=== PATIENT | female | born 1960 | race Caucasian/White ===

== ENCOUNTER 2017-12-04 23:08 | Emergency (ER) | payer OTHER ==
[~2017-12-04] VITALS: Ht 172.7 cm; Wt 77.1 kg
[~2017-12-04 23:08] MED LIST: ADVIL PM CAPLE1 EACH PO; AMBIEN 10 MG TA10 MG PO; ATIVAN1 MG PO; AZITHROMYCIN 2250 MG PO; BENTYL10 MG PO; CLEOCIN HCL150 MG PO; FLEXERIL PO; IBUPROFEN 200200 M1 PO; LIPITOR80 MG PO; OMEPRAZOLE40 MG PO; PHENERGAN-CODE120 ML PO; ULTRAM 50MG TAB50 MG PO; UNKOWN CHOLESTEROL; ZOFRAN ODT4 MG SUBLING
[2017-12-04] MEDS ORDERED: AMBIEN CR 6.26.25 MG (23:20)
[2017-12-04 23:44] LABS: ABSOLUTE BASOPHILS 0.2 thou/uL (0.0-0.2); ABSOLUTE LYMPHOCYTES 2.3 thou/uL (0.8-5.3); ABSOLUTE MONOCYTES 0.8 thou/uL (0.0-1.2); ABSOLUTE NEUTROPHILS 13.3 thou/uL (1.6-8.1); EOSINOPHILS 0.2 %; HEMATOCRIT 40.8 % (37.0-47.0); HEMOGLOBIN 13.9 gm/dL (12.0-15.0); LYMPHOCYTES 14.1 %; MCV 85.1 fL (80.0-100.0); MONOCYTES 4.8 %; MPV 7.3 fl. (7.2-11.1); NUCLEATED RBCS 0 /100WBC; PLATELET COUNT* 235 thou/uL (150-400); POLYS 79.9 %; RDW-CV 13.2 % (10.5-14.5); WBC 16.6 thou/uL (4.0-11.0)
[2017-12-04 23:52] LABS: CALCIUM 8.6 mg/dL (8.5-10.1); CREATININE 0.9 mg/dL (0.6-1.3); POTASSIUM 3.8 mmol/L (3.5-5.1)
[2017-12-04 23:57] LABS: ALBUMIN 4.1 g/dL (3.4-5.0); TOTAL BILIRUBIN 0.6 mg/dL (<0.1-1.0); TOTAL PROTEIN 7.8 g/dL (6.4-8.2)
[2017-12-05 00:14] LABS: URINE BILIRUBIN NEGATIVE (Negative); URINE BLOOD 2+ (Negative); URINE CLARITY CLEAR; URINE COLOR YELLOW; URINE GLUCOSE-RANDOM NEGATIVE (Negative); URINE KETONES NEGATIVE (Negative); URINE LEUKOCYTES-REFLEX NEGATIVE (Negative); URINE NITRITE-REFLEX NEGATIVE (Negative); URINE PROTEIN NEGATIVE (Negative); URINE SPECIFIC GRAVITY <= 1.005 (1.005-1.030); URINE UROBILINOGEN 0.2 E.U./dl (0.2-1.0)
[2017-12-05 00:23] LABS: BACTERIA-REFLEX >30 Many /HPF (None Seen); CASTS None Seen /LPF (None Seen); CRYSTALS None Seen /LPF (None Seen); MUCUS 4-6 Moderate strn/LPF (None Seen); SQUAMOUS 4-10 Moderate /LPF (0-3); URINE RBC 3-10 Few /HPF (0-2); URINE WBC-REFLEX None Seen /HPF (0-5)
[2017-12-05] MEDS ORDERED: CLEOCIN HCL150 MG PO (01:04)
[2017-12-05] MEDS ORDERED: FLAGYL500 MG PO (02:12)
[2017-12-05] MEDS ORDERED: CIPROFLOXACIN500 M1 PO (02:12)
[2017-12-05] MEDS ORDERED: NORCO 7.5-3251 EACH PO (02:12)
[2017-12-05] MEDS ORDERED: ZOFRAN ODT4 MG PO (02:12)
[2017-12-05 03:03] VITALS: BP 121/80
== END 2017-12-05 03:04 | disposition home or self-care (01) ==
LOC: M.ERS 23:08
PROVIDERS: Emergency Medicine
DX: K52.9 Noninfective gastroenteritis and colitis, unspecified (principal); Z91.041 Radiographic dye allergy status

== ENCOUNTER 2020-11-15 10:41 | Emergency (ER) | payer OTHER ==
[~2020-11-15] VITALS: Ht 172.7 cm; Wt 86.2 kg
[~2020-11-15 10:41] MED LIST changes: +AMBIEN CR 6.26.25 MG; +CIPROFLOXACIN500 M1 PO; +FLAGYL500 MG PO; +NORCO 7.5-3251 EACH PO; +ZOFRAN ODT4 MG PO
[2020-11-15] MEDS ORDERED: PENICILLIN VK250 MG (10:48)
[2020-11-15 11:16] LABS: ABSOLUTE BASOPHILS 0.1 thou/uL (0.0-0.2); ABSOLUTE EOSINOPHILS 0.1 thou/uL (0.0-0.7); ABSOLUTE LYMPHOCYTES 2.9 thou/uL (0.8-5.3); ABSOLUTE MONOCYTES 0.5 thou/uL (0.0-1.2); ABSOLUTE NEUTROPHILS 5.1 thou/uL (1.6-8.1); BASOPHILS 1.3 %; HEMATOCRIT 41.3 % (37.0-47.0); MCH 28.5 pg (26.0-34.0); MCHC 33.8 g/dL (28.0-37.0); MCV 84.2 fL (80.0-100.0); MONOCYTES 5.9 %; MPV 6.9 fl. (7.2-11.1); NUCLEATED RBCS 0 /100WBC; PLATELET COUNT* 241 thou/uL (150-400); POLYS 58.8 %; RBC 4.91 mil/uL (4.20-5.00); RDW-CV 13.6 % (10.5-14.5); WBC 8.7 thou/uL (4.0-11.0)
[2020-11-15 11:28] LABS: CREATININE 0.8 mg/dL (0.6-1.3); POTASSIUM 4.1 mmol/L (3.5-5.1)
[2020-11-15 11:33] LABS: ALBUMIN 4.6 g/dL (3.4-5.0); MAGNESIUM 2.2 mg/dL (1.8-2.4); TOTAL BILIRUBIN 0.3 mg/dL (<0.1-1.0)
--- NOTE | 2020-11-15 13:31 | EKG ---
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 11/15/20 1331 1049 1049 Jose Ackerman MD, [facility] /EPI
[2020-11-15] MEDS ORDERED: ATIVAN1 M1 PO (13:52)
[2020-11-15 14:43] VITALS: BP 121/64
--- NOTE | 2020-11-15 15:34 | EKG ---
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 : 1960 Requested By: Camden Larios Order Number: [id number] MD: Jose Ackerman Measurements Intervals [place] Rate: 83 P: 43 PA: 140 QRS: 65 QRSD: 84 T: 62 QT: 397 QTc: 467 Interpretive Statements Sinus rhythm Probable left atrial enlargement Borderline repolarization abnormality Compared to ECG 11/15/2020 10:49:17 No significant changes Electronically Signed On 11-15-2020 15:34:33 CDT by Jose Ackerman [email or web address] <ELECTRONICALLY SIGNED> By: Jose Ackerman MD, [facility] 11/15/20 1534 1351 1351 Jose Ackerman MD, [facility] /EPI
== END 2020-11-15 14:44 | disposition home or self-care (01) ==
LOC: M.ERS 10:41
PROVIDERS: Emergency Medicine Emergency Medical Services
DX: R07.89 Other chest pain (principal); Z91.041 Radiographic dye allergy status; Z90.710 Acquired absence of both cervix and uterus; Z90.89 Acquired absence of other organs

== ENCOUNTER → 2021-03-04 | Outpatient (CLI) | payer OTHER ==
[~2021-03-04] MED LIST changes: +ATIVAN1 M1 PO; +PENICILLIN VK250 MG
== END ==
LOC: M.LAB 11:27
PROVIDERS: ATTEND Internal Medicine Gastroenterology
DX: Z20.822 Contact with and (suspected) exposure to COVID-19 (principal)